=== PATIENT | male | born 1965 | race Caucasian/White ===

== ENCOUNTER → 2020-08-26 14:46 | Outpatient (CLI) | payer OTHER, SELFPAY ==
--- NOTE | 2020-08-26 18:17 | DI.NM.S_ITS ---
DATE OF SERVICE: 08/26/2020 PROCEDURE PERFORMED: Non-imaging exercise treadmill study. ORDERING PROVIDER: Dr. Fly Garvey. INDICATION: The patient is a 54-year-old male with a bipolar disorder and intermittent atypical chest tightness. EXERCISE TREADMILL TESTIN. The patient exercised for 12 minutes 53 seconds on a standard Naseem protocol suggesting excellent exercise capacity with an LINETTE of -30%, achieving 14.8 METs. 2. The patient had a normal heart rate and blood pressure response to exercise achieving a maximum heart rate of 181 BPM (110% of his predicted maximum). 3. Prior to exercise, the patient had chronic persistent chest tightness that remained unchanged with exercise. There were no exertional anginal symptoms. 4. His resting ECG shows sinus rhythm with normal ST segments. With exercise, there are no obvious ST-segment shifts, although there is considerable motion artifact but his immediate recovery ECG tracing shows normal ST segments. There were no obvious arrhythmias. IMPRESSION: 1. Normal exercise treadmill study for ischemia. 2. Excellent exercise capacity without exertional anginal symptoms although he had his chronic, persistent chest tightness before, during, and after exercise. There were no arrhythmias. Phuc Newsome - GAEL/wendy/ayad doc#: [id number]/job#: [id number] dd: 08/26/2020 16:31:00 dt: 08/26/2020 17:27:00 DICTATING /COPIES TO: Phuc Stringer MD; Fly Garvey M.D. COPIES MNE: OSWALD;
== END ==
PROVIDERS: PCP Student in an Organized Health Care Education/Training Program; Referring Provider Family Medicine; Visit Provider Family Medicine
DX: R07.89 Other chest pain (principal); F31.9 Bipolar disorder, unspecified
CPT/HCPCS: 93017